=== PATIENT | female | born 1940 | race Caucasian/White ===

== ENCOUNTER 2016-06-21 18:55 | Emergency (ER) | payer OTHER ==
[~2016-06-21] VITALS: Ht 167.6 cm; Wt 91.7 kg
[~2016-06-21 18:55] MED LIST: ATOR80TA PO; Amlodipine Besylate PO; BUME2TAB PO; CEFA2PLA9 IV; CHLO25TA PO; CHOL4PAC2 PO; ENOX40SY4 SQ; FAMO20TA7 PO; Ferrous Sulfate PO; HYDR-3341 PO; INSU100I18 SQ; INSU100I18 SQ-INSULIN; INSU100I28 SQ-INSULIN; LISI-170 PO; METO-99 PO; METO50TA82 PO; NYST60PO TP; PANT40TA3 PO; PANT40TA5 PO
[2016-06-21] MEDS ORDERED: INSULIN REGULAR 100 UNITS/ML, 3ML VIAL SQ-INSULIN ONE (20:00)
[2016-06-21] MEDS ORDERED: LABETALOL 5MG/ML, 20ML IVPush ONE (20:00)
[2016-06-21] MEDS ORDERED: ALTEPLASE IV ONE ×4 (20:00→20:30)
[2016-06-21 21:04] VITALS: BP 168/72
== END 2016-06-21 21:07 | disposition short-term general hospital (02) ==
LOC: MERGE 18:55 → EDSEX 18:55 → EDBD 18:55 → ED 19:31
DX: I63.131 Cerebral infarction due to embolism of right carotid artery (principal); I63.411 Cerebral infarction due to embolism of right middle cerebral artery; E11.9 Type 2 diabetes mellitus without complications; I10 Essential (primary) hypertension
CPT/HCPCS: 36415; 70450; 70496; 70498; 80047; 85025; 85610; 85730; 93005; 96365; 96368; 96375; 99291; J2997; J7050